=== PATIENT | male | born 1980 | race Caucasian/White ===

== ENCOUNTER → 2020-04-16 | Outpatient (CLI) | payer OTHER | END | disposition home or self-care (01) | LOC: LABWHC1 09:38 | PROVIDERS: ATTEND Orthopaedic Surgery | DX: Z01.812 Encounter for preprocedural laboratory examination (principal) | CPT/HCPCS: 87070 ==

== ENCOUNTER → 2020-04-26 | Outpatient (CLI) | payer OTHER ==
--- NOTE | 2020-04-26 08:50 | CT ---
EXAMINATION TYPE: CT cervical spine wo con DATE OF EXAM: 04/26/2020 COMPARISON: MRI 03/30/2020 HISTORY: 39-year-old male M54.2, cervicalgia, pre disc replacement surgery TECHNIQUE: Contiguous axial scanning of the cervical spine without IV contrast. Coronal and sagittal reconstructions performed. CT DLP: 664.1 mGycm Automated exposure control for dose reduction was used. FINDINGS: No craniocervical junction abnormality, predental space widening, or prevertebral soft tissue swellin g. There is straightening of the normal cervical lordosis but with preserved alignment. Underlying congenital spinal canal stenosis with AP canal dimension of 1.0 cm. Superimposed mild degenerative disc disease C5-C7 levels with focal disc herniations better seen on t he 03/30/2020 MRI causing moderate spinal canal stenoses but with focal indentations/compressions onto the cord at both of these levels. Uncovertebral joint arthropathy mid to lower cervical spine. At C3-C4, mild left bony neuroforaminal stenosis. At C4-C5, mild right bony neuroforaminal stenosis. At C6-C7, mild right bony neuroforaminal narrowing. Visualized upper lung are clear. IMPRESSION: 1. CONGENITAL SPINAL CANAL STENOSIS WITH AP CANAL DIMENSION OF 1.0 CM. 2. SUPERIMPOSED DEGENERATIVE DISC DISEASE PARTICULARLY FROM C5 THROUGH C7 LEVELS RESULTING IN AT LEAS T MODERATE SPINAL CANAL STENOSES BUT WITH FOCAL INDENTATION/COMPRESSION ON TO THE CORD AT BOTH OF THE SE LEVELS, BETTER SEEN ON THE 03/30/2020 MRI. 3. SCATTERED UNCOVERTEBRAL JOINT ARTHROPATHY. MILD BONY NEUROFORAMINAL NARROWING OUTLINED ABOVE.
== END | disposition home or self-care (01) ==
LOC: RADCTMAIN 07:53
PROVIDERS: ATTEND Orthopaedic Surgery
DX: M48.02 Spinal stenosis, cervical region (principal); M50.322 Other cervical disc degeneration at C5-C6 level; M47.812 Spondylosis without myelopathy or radiculopathy, cervical region
CPT/HCPCS: 72125

== ENCOUNTER 2020-05-11 06:11 | Observation (INO) | payer OTHER ==
[2020-05-04 11:58] VITALS: BMI 27.8
--- NOTE | 2020-05-10 12:00 | P.HPOR ---
History of Present Illness H&P Date: 04/16/20 Chief Complaint: Neck pain UE numbness/tingling This 39 year old male presents with neck pain on consult from Dr. Sierra in [place]. Patient states that in 2016 his neck popped while weight lifting. He has had 12 sessions of physical therapy 8 times with no relief. He had one home exercises as instructed with no relief of his neck pain. He has been to a Chiropractors with no relief. He reports posterior neck pain and right arm numbness. Patient has been taking Ibuprofen 800mg with no relief of his neck pain. Patient is ambulating independently. he feels that all physical therapy as well as conservative modalities have failed at this time and he would like to seek surgical options for this. He denies any bowel or bladder issues. He denies perineal numbness or tingling. He is not of difficulty with fine motor skills but he has the ability with activities are related to upper extremity motion secondary to the pain and the weakness that he feels Review of Systems 14 points review of systems completed and as stated in HPI, all other systems reviewed are negative. Past Medical History Past Medical History: No Reported History History of Any Multi-Drug Resistant Organisms: None Reported Past Surgical History: Back Surgery, Hernia Repair Past Anesthesia/Blood Transfusion Reactions: No Reported Reaction Past Psychological History: No Psychological Hx Reported Smoking Status: Former smoker Past Alcohol Use History: None Reported Additional Past Alcohol Use History / Comment(s): Smoked as a teenager. Past Drug Use History: None Reported - Past Family History Mother Family Medical History: No Reported History Medications and Allergies Home Medications Medication Instructions Recorded Confirmed Type No Known Home Medications 05/04/20 05/04/20 History Allergies Allergy/AdvReac Type Severity Reaction Status Date / Time No Known Allergies Allergy Verified 05/04/20 11:58 Physical Examination Osteopathic Statement: *. No significant issues noted on an osteopathic structural exam other than those noted in the History and Physical/Consult. General: Awake, alert, appropriate for age, in no acute distress. HEENT: No unusual neck masses around region of lateral neck triangle, thyroid, supraclavicular groove Heart: Regular rate and rhythm, normal S1, S2 and no murmur/gallop. Lungs: Clear to auscultation bilaterally with no use of accessory muscles. Extremities: Skin warm and dry without acute lesions, coloration, temperature, skin intact, no tenderness or erythema Integument: Hairy patches: Absent Dorsal skin dimples: Absent Cafe au lait spots: Absent Surgical incisions: none Palpation: Please see Pain drawing on Intake sheet for further detail. Midline spinal tenderness: yes lumbar E6 Paralumbar tenderness: No E6 Parathoracic tenderness: No E6 Buttocks tenderness: No E6 Special findings: none POSTURAL and MUSCULO-SKELETAL EVALUATION: Coronal Balance: Neutral Recumbent testing: Patient is able to lay flat on back Sagittal Balance: Neutral Shoulder Profile: level Pelvic Girdle: level Neck ROM: Unrestricted Lumbar ROM: Unrestricted Shoulder ROM: Symmetric in abduction, ER/IR Hip ROM: Symmetric in abduction, adduction, ER/IR Knee ROM: Symmetric and intact in Flexion / extension Hands: Normal Feet: Normal VASCULAR STATUS : LEFT RIGHT Wrist Pulses intact intact Pedal Pulses (Dors. pedis & post.tibialis) intact intact Color normal normal Edema Absent Absent NEUROLOGIC EXAMINATION: Mental Status: Awake and alert, fully oriented, with normal attention, concentration and memory, and fluent, appropriate speech. Cranial Nerves: I: Olfactory not tested. II: Visual acuity normal, no visual field deficit noted with confrontation. III,IV: Normal pupillary reflexes & intact extraocular movements without nystagmus. V,: Intact symmetrical facial sensation. VII: Intact symmetrical facial motor movement VIII: Hearing intact. IX,X: Intact gag, swallow, & normal voice. XI: Sternocleidomastoid, trapezius function intact. XII: Tongue midline with normal movements. L'hermitte's Sign: Negative / absent Spurling'Sign: Absent bilaterally. Cubital percussion test: Absent bilaterally. Vijay-Tinel sign - Carpal region: Absent bilaterally. Straight Leg Raising: Absent bilaterally. Crossed straight leg raise: negative MOTOR EXAM (0-5/5, N/T) STRENGTH RIGHT LEFT Shoulder Abd (not part of the VETO score) 5 5 Elbow Flexors 5 5 TricepsExtensor 4+ 5 Wrist Dorsiflexors 5 5 Finger Abductor 5 5 Business Applications Specialist 4+ 5 Hip Flexor (Not part of VETO Motor score) 5 5 Knee Flexor 5 5 Knee Extensor 5 5 Ankle dorsiflexor 5 5 Ankle plantarflexion 5 5 Extensor hallucis 5 5 REFLEXES(0-4/2, NT) RIGHT LEFT Upper Extremities 2 2 Lower Extremities 2 2 Pathological Reflexes RIGHT LEFT Matthews's Absent Absent Clonus Absent Absent negative Babinskis bilaterally Muscle appearance: Normal Rectal Tone: Deferred Sensory system (0-4, N/T) Test type RU JENNIFER RL LL Joint-Position 2 2 2 2 Vibration 2 2 2 2 Pain & LT sense 2 2 2 2 Dermatomal Deficit: none none none none Gait and Functional Evaluation: Ambulatory aids: Independent Romberg's test: Intact bilaterally Toe heel walk / heel-toe walk intact while maintaining satisfactory balance? yes Squatting/straightening w/o assistance to a min of 60 degree knee flexion? yes Single leg stance: intact Trendelenburg sign negative bilaterally Hand and finger dexterity intact bilaterally? yes Disdiadochokinesis examination negative bilaterally? yes Results XRAY: of the cervical spine today reveal: minor spondylotic changes at C5 6 C6 7. Overall alignment well-maintained disc heights and vertebral body heights maintained occipital cervical C1 2 joints appear stable flexion-extension no other instability lesions fractures or dislocations noted MRI of the cervical spine form 03/30/2020 reveals: disc herniations noted at C5 6 C6 7. This causes moderate to severe stenosis central as well as foraminal at C5-C6 C6 7. No lesions fractures or dislocations noted C1 2 as well as occipital cervical joints appear stable overall alignment is well-maintained. Assessment and Plan Assessment: 1. C5 6 as well as C6-C7 disc herniations acute on chronic 2. UE weakness with radiculopathy severe, failed conservative measures Plan: 2. Schedule for a C5-C6, C6-C7 disc replacement 3. due to failure of conservative measures including oral anti-inflammatory steroid anti-inflammatories muscle relaxers physical therapy home exercises well as other invasive modalities and noninvasive modalities the patient at this time would like to seek operative treatment for this as it is become detrimental to his lifestyle and his activities of daily living. Discussed at length the di fferent options for this and due to his age as well as his issues at do feel that disc replacement be the best thing for him. This will allow him to maintain motion decreased the risk of adjacent segment disease as well as decompresses spine and create stability that is available to him. Due to these being at lower levels the spina do feel that a semiconstrained dislike of Prodisc C is necessary for these levels. I discussed with him at length the different options disc replacement versus fusion and he agrees that he feels this replacement is a good option for him. We will obtain a CT of his cervical spine to assess his facet joints as well as surgically plan for disc replacement. Spine Surgery Risk Review Sudeep Dias is a 39 yo male presenting for evaluation of ongoing neck pain RUE pain and weakness for >6 months. It was my pleasure to have seen and examined Sudeep Dias In our visit today we have had a chance to go over subjective complaints, physical examination findings and treatments including the natural course history without intervention and various interventional options. The patients imaging demonstrates C5-6 and C6-7 a/c HNP with stenosis. On physical exam, Sudeep Dias demonstrates RUE radiculopathy and weakness when compared to his LUE. I have explained to the patient that as their condition progresses it will cause further neurological deficits and eventual paralysis. Based on the patients imaging, physical exam, and the rapid progression and disabling nature of their symptoms, at this time I recommend surgery in the form or a: Cervical disc replacement. I discussed the risk and benefits of this procedure at length with Sudeep Dias. The patient agreed to considered pursuing the procedure abovementioned. Prior to surgery, she should follow up with her PCP (Cardio, ID, IM etc) for clearance. Questions were invited and answered, and the patient wishes to proceed as outlined below. Currently, I am recommendin.Anterior (Frontside) cervical disc replacement at C5-6 and C6-7 2.Follow up with PCP for surgical clearance 3.Review of surgical risks and benefits as well as an educational packet on the proposed surgical procedure. Risks: All surgical procedures come with inherent risks, including those related to positioning, anesthesia, intraoperative findings, and postoperative complications. It is important to understand that surgery does not come with any guarantee of a successful outcome as complications and adverse events are always possible. The patient was given a handout in office today discussing the surgical procedure and risks associated with the intervention, both of which were discuss ed with the patient. These risks include but are not limited to the following: * Experiencing same, different or even worse symptoms in back, neck, arms, or legs compared to before surgery. Requiring further surgery or other forms of treatment presently or at some time in the future at same or other levels of the intended spine surgery. On an extreme but fortunately relatively rare basis severe complication such as blindness, stroke, heart attack, temporary and/or permanent nerve injury, paralysis, coma, or may occur, sometimes without known explanation. Surgical complications may include but are not limited to risk of infection, fluid accumulation in the surgical dissection site, including a seroma or hematoma, that requires additional surgery, wound drainage, bleeding, new numbness or weakness, vision changes/loss, spinal fluid leakage, non-healing and/or infected incision, headaches, difficulty or inability to swallow, hoarseness, hemopneumothorax, pneumothorax, impotence, retrograde ejaculation, vaginal dryness; injury to nerves, spinal cord, blood vessels, lymphatics or other vital organs (i.e., bowel injury, injury to the great vessels); heterotopic bone formation; complications related to the hardware such as screws, rods, cages including misplaced hardware, device failure, instrumentation at the wrong spine level, hardware fracture/breakage, or hardware loosening; vertebral failure of the spinal column above or below the newly placed hardware; retained surgical instrumentations or devices and the need for further surgery. * Medical risks of the planned spine surgery include but are not limited to generalized Infections to the whole body or local areas outside of the surgical site (sepsis), heart attack, bleeding, anaphylaxis, meningitis, seizure, epilepsy, hearing loss, burn campos, laceration of the head or other areas of the body, bruising, hypersensitivity of the skin, bladder over distension; allergic reaction; shoulder injury related to positioning; fat, blood and air clots to other areas of the body like heart, lungs, brain; failure of internal organs such as lungs, kidneys, liver and excessive bleeding. If blood transfusions are necessary, note that transfusions may cause intolerance reactions such as anaphylaxis or other complex reactions. We discussed the risks and benefits with the specific implant. Prodics c is a semiconstriained implant and is idea for the lower cervical spine. Due to the patient having two levels of disease I do feel it is necessary to address both of these levels and do so with an implant with the literature to support extermination supervisor outcomes like the prodisc c as well as the constraint at the bottom of the cervical spine that is biomechanically necessary. While the FDA approval is only for one level it was discussed that we can use this off label for two levels and what this entails. The patient understood this and was comfortable consenting to this use and assuming the risks associated with this. Despite best efforts, the results of spine surgery might not heal in terms of bone, soft tissues such as skin, fascia, ligaments, and joints. Additionally, in order to achieve best possible results, spine surgery may be carried out beyond the initially planned levels and involve decompression, fusion including insertion of hardware at levels other than the original intended area of surgical interest change some portions of the procedure in order to ensure the best possible outcomes. With spine surgery and spinal fusion, there are different off label uses of instrumentation (devices, implants and hardware) as well as biological substances (bone morphogenic proteins, demineralized bone matrix) as well as using extra bone from allograft sources (i.e. cadaver bone) or autograft (iliac crest bone, ribs, or the spine itself). The patient has been given information about these practices and their inherent risks and benefits. [facility] is an educational center that serves as a training facility for neurosurgical and orthopedic spine residents and fellows. Residents are physicians who are completing their surgical intensive training following medical school. They assist in the operating room with direct supervision of the attending surgeons. [place] are surgeons who have completed their training and eligible for board certification. They have opted for an elective year of more specialized training in their field. They assist in the operating room under the supervision of the attending surgeons. Physician assistants are medically trained surgical providers who function in the outpatient, inpatient, and operating room setting under the direct supervision of the attending surgeon. [facility] has multiple operating rooms with single and overlapping rooms running daily. They currently function under the required guidelines as produced by the [facility] [employer] with regards to the overlapping rooms and will continue to comply with changes to this policy as they occur. The requirements include and are complied with as follows: (1) the critical portions of the overlapping rooms will not occur at the same time, (2) the attending physician will be physically present during the critical portions of the procedure and immediately available during the entire case, and (3) a back-up attending is designated should the primary attending not be immediately available. The patient has had a chance to review all the listed information, has been given print outs detailing this information, and has had all his/her questions answered to their satisfaction. It was my pleasure to have seen and examined Sudeep Dias. In our visit today we have had a chance to go over my understanding of our patient's current condition, the natural course history without intervention and various interventional options. Questions were invited and answered, and the patient wishes to proceed as outlined above. I have seen and examined the patient for 25 minutes and we have spent more than 50% of the time in repeat and detailed counseling about the patient's condition, its natural course history with out and as much as can be predicted with surgery and re-review of various surgical treatment options. In conclusion, Sudeep Dias and requested we proceed with the above suggested surgery and are willing to accept risks and limitations of the suggested surgery as nature of the disease process and our best attempts at treatment for the condition. Thank you again for allowing us to be part of your patient's care. Please don't hesitate to contact me if you have any further questions. Signed and authenticated by: [employer] P:\\ppart\\[id number] \\[id number].PNG \d Sudeep [facility] [address], [address] [address] Time with Patient: Greater than 30
[~2020-05-11 06:11] MED LIST: ACETAMINOPHEN TAB 500 MG TAB PO PRN; DEXAMETHASONE SOD PHOSPHATE 4 MG/ML 1 ML VIAL IV ONE; LIDOCAINE 1% (10MG/ML) FOR IV START INTRADERMA PRN; ONDANSETRON 4 MG/2 ML VIAL IVP PRN
[2020-05-11] MEDS: LACTATED RINGERS 1,000 ML IV SCH ×2 (06:48→20:28)
[2020-05-11] MEDS ORDERED: GLYCOPYRROLATE 0.2 MG/ML 2 ML VIAL ONE (07:30)
[2020-05-11] MEDS ORDERED: PROPOFOL 10 MG/ML 20 ML VIAL IV ONE (07:30)
[2020-05-11] MEDS ORDERED: SUCCINYLCHOLINE CHLORIDE 100 MG/5 ML SYR IV ONE (07:30)
[2020-05-11] MEDS ORDERED: ROCURONIUM 10 MG/ML (5 ML VIAL) IV ONE (07:30)
[2020-05-11] MEDS ORDERED: fentaNYL (PF) 50 MCG/ML 2 ML AMP ONE (07:30)
[2020-05-11] MEDS ORDERED: MIDAZOLAM 2 MG/2 ML VIAL ONE (07:30)
[2020-05-11] MEDS ORDERED: DEXAMETHASONE SOD PHOSPHATE 10 MG/ML 1 ML VIAL ONE (07:30)
[2020-05-11] MEDS ORDERED: ePHEDrine SULFATE/0.9% NACL/PF 50 MG/5 ML SYRINGE IV ONE (07:30)
[2020-05-11] MEDS ORDERED: NEOSTIGMINE 1 MG/ML 10 ML VIAL ONE (07:30)
[2020-05-11] MEDS ORDERED: KETAMINE 10 MG/ML 20 ML VIAL ONE (07:30)
[2020-05-11] MEDS ORDERED: KETOROLAC 15 MG/ML 1 ML VIAL ONE (07:30)
[2020-05-11] MEDS ORDERED: LIDOCAINE 1% INJ 10MG/ML (20 ML MDV) ONE (07:30)
[2020-05-11] MEDS ORDERED: GELATIN SPONGE,ABSORB (LARGE) 1 EACH SPONGE TOPICAL ONE (08:45)
[2020-05-11] MEDS ORDERED: THROMBIN (BOVINE) 5,000 UNIT VIAL TOPICAL ONE (08:45)
[2020-05-11] MEDS ORDERED: BUPIVACAINE-EPI 0.5%-1:200,000 10 ML VIAL SQ ONE (08:47)
[2020-05-11] MEDS ORDERED: LACTATED RINGERS 1,000 ML IV ONE (08:49)
[2020-05-11] MEDS ORDERED: HYDROcodone/APAP 5-325MG 1 EACH TAB PO PRN (11:44)
[2020-05-11] MEDS ORDERED: DEXAMETHASONE SOD PHOSPHATE 4 MG/ML 1 ML VIAL IV PRN (11:46)
[2020-05-11] MEDS ORDERED: SENNOSIDES 8.6 MG TAB PO PRN (11:46)
[2020-05-11] MEDS ORDERED: CYCLOBENZAPRINE 10 MG TAB PO PRN (11:46)
--- NOTE | 2020-05-11 13:15 | FL ---
EXAMINATION TYPE: FL guidance operating room DATE OF EXAM: 05/11/2020 HISTORY: Fluoroscopy time 1 minute and 57 seconds of fluoroscopy provided. IMPRESSION: 1. Fluoroscopy time.
--- NOTE | 2020-05-11 13:18 | XR ---
EXAMINATION TYPE: XR cervical spine limited DATE OF EXAM: 05/11/2020 COMPARISON: NONE HISTORY: Intraoperative image TECHNIQUE: 2 views submitted. FINDINGS: There is to be an endotracheal tube. A metallic instrument is seen overlying the upper vert ebral body segment. IMPRESSION: Intraoperative localization
[2020-05-11] MEDS ORDERED: SODIUM CHLORIDE 0.9% 1,000 ML IV ONE ×2 (13:47)
[2020-05-11] MEDS ORDERED: ONDANSETRON 4 MG/2 ML VIAL IVP ONE (14:49)
[2020-05-11] MEDS ORDERED: HYDROmorphone 0.5 MG/0.5 ML SYRINGE IVP ONE ×2 (14:51→15:01)
[2020-05-11] MEDS: KETOROLAC 15 MG/ML 1 ML VIAL IVP SCH ×2 (17:55→20:35)
[2020-05-11] MEDS: GABAPENTIN 300 MG CAP PO SCH ×2 (17:55→20:35)
[2020-05-11] MEDS: HYDROmorphone 0.5 MG/0.5 ML SYRINGE IVP PRN (20:34)
[2020-05-11] MEDS: 0.9% NACL WITH KCL 20 MEQ/L 1,000 ML IV SCH (20:34)
[2020-05-12 00:21] VITALS: RESP 18
[2020-05-12] MEDS: HYDROmorphone 0.5 MG/0.5 ML SYRINGE IVP PRN ×2 (00:39→09:04)
--- NOTE | 2020-05-12 00:49 | P.CONS ---
History of Present Illness - Reason for Consult Consult date: 05/12/20 - History of Present Illness The patient is a 39 yo M with a PMH of cervical radiulopathy who was admitted for an elective cervical disc replacement. The patient underwent the procedure earlier today with no immediate postoperative complications. Patient was seen for a medical consult. The patient had experienced a popping in his neck while weight lifting a few years ago. He subsequently went back to the gym 6 months ag o and feels that he may have aggravated his initial injury. He reports experiencing significant neck pain along with R arm numbness for past 6 months with minimal relief with physical therapy or chiropractors, at which time he decided to pursue surgical intervention. He was in good spirits and reported adequate control of his pain, currently at a 3-4/10 diffusely in his neck. Denied weakness, numbness, or tingling. Also denied headache, visual disturbances, nausea, or vomiting. Reports having no additional PMH and that he only takes Motrin prn for neck pain at home. Review of Systems Pertinent positives and negatives as discussed in HPI, a complete review of systems was performed and all other systems are negative. Past Medical History Past Medical History: No Reported History History of Any Multi-Drug Resistant Organisms: None Reported Past Surgical History: Back Surgery, Hernia Repair Additional Past Surgical History / Comment(s): cervical disc replaced C5-6 and C6-7 on 05/11/2020 Past Anesthesia/Blood Transfusion Reactions: No Reported Reaction Past Psychological History: No Psychological Hx Reported Smoking Status: Former smoker Past Alcohol Use History: None Reported Additional Past Alcohol Use History / Comment(s): Smoked as a teenager. Past Drug Use History: None Reported - Past Family History Mother Family Medical History: No Reported History Medications and Allergies Home Medications Medication Instructions Recorded Confirmed Type No Known Home Medications 05/04/20 05/11/20 History Allergies Allergy/AdvReac Type Severity Reaction Status Date / Time No Known Allergies Allergy Verified 05/11/20 06:24 Physical Exam Vitals: Vital Signs Temp Pulse Pulse Pulse Resp BP BP 05/11/20 20:00 97.8 F 63 18 119/74 05/11/20 17:01 97.6 F 74 20 154/66 05/11/20 17:00 20 05/11/20 16:30 78 16 115/65 05/11/20 16:00 83 18 99/52 05/11/20 15:30 67 16 104/55 05/11/20 15:00 75 16 107/56 05/11/20 14:30 67 16 108/61 05/11/20 14:15 70 17 106/58 05/11/20 13:50 78 16 104/56 05/11/20 13:35 69 16 113/59 05/11/20 13:20 73 17 110/58 05/11/20 13:05 65 16 106/58 05/11/20 12:50 62 16 108/56 05/11/20 12:39 60 16 108/53 05/11/20 12:24 64 16 108/56 05/11/20 12:09 97.6 F 67 16 97/54 05/11/20 06:44 97.4 F L 67 16 112/57 Pulse Ox 05/11/20 20:00 97 05/11/20 17:01 98 05/11/20 17:00 05/11/20 16:30 100 05/11/20 16:00 99 05/11/20 15:30 98 05/11/20 15:00 99 05/11/20 14:30 97 05/11/20 14:15 99 05/11/20 13:50 99 05/11/20 13:35 99 05/11/20 13:20 100 05/11/20 13:05 99 05/11/20 12:50 99 05/11/20 12:39 98 05/11/20 12:24 98 05/11/20 12:09 97 05/11/20 06:44 98 Intake and Output 05/11/20 05/11/20 05/12/20 14:59 22:59 06:59 Intake Total 1850 1440 Output Total 75 Balance 1775 1440 Intake: IV 1850 600 Intake, IV Titration 600 Amount 0.9% NaCl with KCl 20 Meq 600 /l 1,000 ml @ 75 mls/hr IV .[id number] [facility] Rx#: [id number] Oral 240 Output: Estimated Blood Loss 75 Other: Voiding Method Toilet # Voids 2 Weight 92.3 kg General: non toxic, no distress, in a neck brace, appears at stated age, normal weight Derm: no unusual rashes/lesions no unusual ecchymoses, warm, dry Head: atraumatic, normocephalic, symmetric Eyes: EOMI, no lid lag, anicteric sclera, pupils equal round reactive to light ENT: Nose and ears atraumatic, no thrush, no pharyngeal erythema Neck: No thyromegaly, no cervical lymphadenopathy, trachea midline, supple Mouth: no lip lesion, mucus membranes moist Cardiovascular: S1S2 reg, no murmur, positive posterior tibial pulse bilateral, no edema, capillary refill less than 2 seconds Lungs: CTA bilateral, no rhonchi, no rales , no accessory muscle use Abdominal: soft, nontender to palpation, no guarding, no appreciable organomegaly, normal bowel sounds Ext: no gross muscle atrophy, muscle strength 5 out of 5 in all 4 extremities grossly, no contractures, Neuro: CN II-XI grossly intact, light touch intact all 4 extremities, finger to nose within normal limits, Psych: Alert, oriented, appropriate affect Assessment and Plan Plan: S/p cervical disc replacement C5-C6, C6-C7 -Will defer management including pain control to the surgery service -Patient currently on [place], Indocin, and Dilaudid We appreciate this opportunity to be involved in this patient's care. We will follow the patient with you. For any further questions, please not hesitate to contact the sound inpatient team.
[2020-05-12] MEDS: KETOROLAC 15 MG/ML 1 ML VIAL IVP SCH (05:21)
[2020-05-12] MEDS: 0.9% NACL WITH KCL 20 MEQ/L 1,000 ML IV SCH (05:22)
[2020-05-12 07:02] VITALS: BP 110/67; PULSE 62; TEMP 97.7
--- NOTE | 2020-05-12 08:29 | P.PN ---
Subjective Progress Note Date: 05/12/20 Principal diagnosis: Cervical spondylosisi Patient seen and examined this morning. He is doing well. He states that the pain in his arm is much better and gone. He has been up and about he is tolerating his medications as well as his diet at this time with only minimal soreness stroke. He denies any fevers chills shortness of breath or chest pain at this time. Objective - Vital Signs Vital signs: Vital Signs Temp 97.7 F 05/12/20 06:55 Pulse 62 05/12/20 06:55 Resp 18 05/12/20 06:55 BP 110/67 05/12/20 06:55 Pulse Ox 99 05/12/20 06:55 Intake & Output 05/11/20 05/12/20 05/12/20 18:59 06:59 18:59 Intake Total 2690 600 Output Total 75 30 Balance 2615 600 -30 Weight 92.3 kg Intake: IV 2450 Intake, IV Titration 600 Amount 0.9% NaCl with KCl 20 Meq 600 /l 1,000 ml @ 75 mls/hr IV .[id number] MAGDA Rx#: [id number] Oral 240 Output: Drainage 30 Anterior Neck 30 Estimated Blood Loss 75 Other: Voiding Method Toilet Toilet # Voids 1 2 - Exam Patient is alert and oriented 3 appears well-nourished well-hydrated is in no acute distress. They does not appear septic. On exam the patient has no tenderness to palpation of her thoracic or lumbar spine. There is no edema or ballottement sign. They have good strength in her lower extremities with 5 out of 5 dorsiflexion plantar flexion EHL and FHL bilaterally. Upper extremities show 5/5 strength in all major muscle groups. There is FROM that is painless of the b/l UE and LE in all major joints. They are intact to light touch sensation in L2 to S1 nerve distribution. Patient has palpable dorsalis pedis was posterior tibial pulses. Compartments are soft and compressible. Patient shows a negative Homans, Matthews's, negative Babinski's negative clonus bilaterally. negative straight leg raise bilaterally. No tensioning signs.Cranial nerves II through XII are grossly intact. Overall alignment is well-maintained in the sagittal coronal planes. Incision is clean dry and intact no erythema or ecchymosis or edema. Drain hole and drain stitch removed at this time. Minimal drainage Assessment and Plan Assessment: 39-year-old male postoperative day 1 C5 6 C6 7 total disc replacement 1. C5 6 as well as C6-C7 disc herniations acute on chronic 2. UE weakness with radiculopathy severe, failed conservative measures Plan: -Appreciate medicine management. -Pain control: At this time -Aggressive ambulation protocol. OOB with all meals. OOB or in chair 4-5x daily. -PT/OT -TEDs, SCDs, mechanical ppx. OK for heparin today. Early ambulation is best. -GI ppx. -X-rays today show implants in good position -Trend labs. -Dispo: Home today
--- NOTE | 2020-05-12 08:45 | XR ---
Cervical spine Limited HISTORY: Postop Frontal and lateral views obtained of the cervical spine, comparison to previous exam 04/16/2020 There has been interval placement of prosthetic disc at the C5-6 and C6-7 level, there is an indwelli ng drain overlying the prevertebral soft tissues. C7-T1 not well seen. There is anatomic alignment. S ubcutaneous emphysema is noted incidentally. IMPRESSION: Orthopedic follow-up.
--- NOTE | 2020-05-12 09:02 | P.DS ---
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 They underwent appropriate preoperative care and were willing to undergo the intended procedure. They underwent a successful C5 6 C6 7 total disc replacement, were recovered appropriately and sent to the floor. While on the floor they worked with physical therapy, occupational therapy and nursing to enhance their recovery experience. Their pain was well controlled through their stay and they were started on appropriate medications, DVT ppx modalities, activity and dietary needs. Daily labs were monitored closely, and transfusions were only used when necessary. Medicine as well as other consulting services have made their input and have helped with our team approach and multidisciplinary care. PT milestones have been met and passed and they have made the recommendation of home for this patient and treating providers agree with this care path. The patient will be discharged home with appropriate medications, instructions and follow-up information and in stable condition. Patient Condition at Discharge: Stable Plan - Discharge Summary New Discharge Prescriptions: New cefaDROXiL [Duricef Susp] 10 ml PO BID 3 Days ml Cyclobenzaprine [Flexeril] 10 mg PO TID PRN #40 tab PRN Reason: Spasms Gabapentin 300 mg PO TID 3 Days #9 cap Indomethacin [Indocin] 50 mg PO BID 14 Days #30 capsule HYDROcodone/APAP 5-325MG [[place] 5-325] 1 - 2 tab PO Q4H PRN #56 tab PRN Reason: Pain Sennosides/Docusate Sodium [Senna Plus 8.6-50 mg Tablet] 1 each PO BID #30 tablet Discharge Medication List Cyclobenzaprine [Flexeril] 10 mg PO TID PRN #40 tab 05/12/20 [Rx] Gabapentin 300 mg PO TID 3 Days #9 cap 05/12/20 [Rx] HYDROcodone/APAP 5-325MG [[place] 5-325] 1 - 2 tab PO Q4H PRN #56 tab 05/12/20 [Rx ] Indomethacin [Indocin] 50 mg PO BID 14 Days #30 capsule 05/12/20 [Rx] Sennosides/Docusate Sodium [Senna Plus 8.6-50 mg Tablet] 1 each PO BID #30 tablet 05/12/20 [Rx] cefaDROXiL [Duricef Susp] 10 ml PO BID 3 Days ml 05/12/20 [Rx] Follow up Appointment(s)/Referral(s): Sudeep Broderick DO [Doctor of Osteopathic Medicine] - 2 Weeks Activity/Diet/Wound Care/Special Instructions: Spine Discharge and Recovery Instructions Date of Surgery: 05/11/2020 Diagnosis: Cervical spondylosis with radiculopathy and herniated nucleus pulposus Procedure: C5 6 C6 7 total disc replacement Medications: See list All medication refills should be obtained through your primary care doctor or your clinic spine surgeon. Please discuss prescription refills at your follow up appointment. Do not call the hospital for medication refills. Dressing: Leave your dressing in place for a total of 3 days post operatively. Then you may remove your dressing and leave open to air. Keep the area clean and if not able to keep area clean, then cover with sterile gauze and tape. Showering: You may shower 3 days after your procedure allowing soap and water to run over incision. Do not scrub. Do not soak. Blot dry. He is wearing her cervical collar at all times when up and about or riding in a vehicle. He may remove it when seated still or for showering Follow up: Please confirm a follow up appointment with your surgeon 2 weeks post operatively. Please make an appointment to follow up with your PCP in 1-2 weeks after surgery for evaluation 3 phase, 3-week plan POST OP WEEKS 1-3 1. Lifting/carrying/pushing/pulling limited to less than 5 pounds. 2. Do not sit for longer than 15 minutes at one time. Get up and walk around. Prolonged sitting is NOT advised. If you lay down, see if you can tolerate laying down on you front (belly side) 3. Walk for periods of 15 minutes = 1 mile but no longer; do it multiple times times each day. 4.Ice your low back after activity. POST OP WEEKS 3-6 1. Lifting limited to less than 20 pounds. 2. Do not sit for longer than 30 minutes at a time. Frequently change positions. Use a sit-to stand workstation or take frequent breaks from sitting if you have returned to work. 3. Walk for 30 minutes each day. If possible, do these three or more times a day POST OP WEEKS 6+ At your 6-week appointment we will give you a physical therapy referral to focus on a core stabilization and strengthening program. You should also work on leg & buttock strengthening, hamstring & quadriceps stretching, and continue a low impact aerobic activity program such as swimming, walking, or riding a stationary bicycle. During the initial 6 weeks after your surgery, you are at the highest risk of re-injuring your spine. You should generally avoid BLTs (bending, lifting and twisting combination motions) and follow the above guidelines to reduce the chance of reinjury. You can anticipate post op appointments in our office at approximately 3 weeks and 6 weeks after your surgery. INCISION CARE: If your incision is not draining you do NOT need to cover it with a dressing. Keep your incision clean, dry and intact. In most cases, we apply skin glue, juan or sutures to the incision at the time of surgery. This will be like a crust or have the appearance of a scab and will fall off in time on its own. The stitches or juan need to be removed at 3 weeks post op appointment. You may begin to shower 3 days after surgery (this allows the glue to salazar well). However, please avoid scrubbing the incision site or peeling off any of the skin glue. This will ensure optimal healing of your incision. Also, during this time avoid soaking the incision area in water - this includes swimming pools, hot tubs or baths. No ointments, lotions or oils on the incision until your surgeon allows. Leave juan, sutures or glue in place. Neurological dysfunction that comes on suddenly can also be a sign of a stroke. Below some common symptoms of a stroke are listed: B - balance difficulty such as sudden onset walking or leaning to one side - NEW E - eye problem such as sudden double vision or trouble seeing on one side - NEW F - Facial weakness or numbness on one side - NEW A - Arm or leg weakness or numbness on one side - NEW S - Slurred speech or difficulty with word finding - NEW T - Time is BRAIN! Call 911 as soon as you recognize these symptoms Diet: Consume a regular diet rich in vegetables and lean protein such as chicken or fish. You should consume in a ratio of approximately 20% fats|40% carbohydrates|40%protein. Vegetables, sweet potatoes, brown rice or quinoa are examples of good carbohydrates. Chips, white bread, cookies and sweets/sugar are examples of bad carbohydrates. Limit your bad carbs, go wild with good carbs. "Life's Simple 7" Guidelines as per [place] [employer] These will help you reclaim your life after surgery and compounder helper in your recovery, keeping in mind your restrictions. (1) Get Active. Physical activity can help people lose weight, control high blood pressure and cholesterol, feel emotionally better, and sleep better. (2) Control Cholesterol. Avoid a diet high in saturated fat, trans fat, & cholesterol. Limit whole milk & cream, ice cream, butter, egg yolks, processed meats (like sausage and hot dogs), and fatty meats. Choose healthy foods that are low in saturated fat, trans fat and cholesterol which include: Fruits and vegetables, fiber rich grain products (like whole grain pasta and brown rice), lean meat such as chicken, fish, nuts, seeds, and legumes. (3) Eat Better. Eat small portions. Shop at the grocery with a list and do not stray from it. Tips for a healthy diet include: Limit sodium intake to less than 1500mg daily, avoid prepackaged, processed, and fast foods, choose a diet rich in fruits, vegetables, and whole grain, high fiber foods, and limit saturated & cholesterol in your diet. (4) Manage Blood Pressure. If you have high blood pressure, you should have a cuff at home so that you can check your blood pressure regularly. Be sure you have a good cuff. An arm one is generally better than a wrist one. Bring the cuff to a doctor's appointment to validate that the measurements that your cuff are taking are accurate. Take your blood pressure twice daily when you are sitting down and relaxing. Record the numbers in a log and bring this log with you to your doctors' appointments. (5) Lose Weight if your BMI is above 25. A healthy BMI is between 19-25. To calculate Your BMI, you may use a Standard BMI Calculator on the NIH BMI website: <www.nhlbi.nih.gov/guidelines/obesity/BMI/bmicalc.htm>. Weigh oneself daily. If you are overweight, set a goal to lose weight. A pound a week loss if needed is a good target. (6) Reduce Blood Sugar. Limit foods and liquids with "added sugars." (Added sugars include sucrose, fructose, glucose, maltose, dextrose, high fructose corn syrup, corn syrup, concentrated fruit juice and honey). (7) Stop Smoking. If you smoke, quitting smoking is one of the best things that you can do for your health. Smoking increases your risk of heart attack, stroke, and peripheral vascular disease, which is a build-up of plaque in your arteries. Please discard all the cigarettes and lighters in your house. Have a plan for what you will do when you have the urge to smoke. Direct and second- hand smoke shortens your life as well as the lives of your family, friends and others around you. For your health and the health of those around you, please consider quitting! Proper Bending Body Mechanics: Maintain a wide stance with one foot slightly in front of the other. Keep your back straight. Bend utilizing the strength in your hips and knees. Do not bend at the waist. Maintain the lifted object at your waist-level close to your body. Avoid lifting weight that causes immediately pain or pain anywhere in the body afterwards. Smoking/Nicotine If there was ever one thing that you could do to increase your overall health, decrease your risk of cardiovascular problems by about 39% the second you make the choice, it is to STOP SMOKING. Your body's most instant gratification is the second you stop smoking. We have all heard the studies, read the articles but it is true, smoking is extremely bad for your overall health, and moreover it is detrimental to your bone health. Nicotine, IN ANY FORM, kills bone cells, prevents your body from healing fractures, and significantly prolongs healing after surgery. In spine surgery specifically, it increases your risk of not healing your bones to create a fusion and increases your risk of having a revision surgery due to this up to 60%. I know it is hard. I know it feels impossible. But there are ways. Take control of your life. We are here to help you through it. And when you are ready, ask us and we can direct you to help if you desire. Use the START Plan to Quit Smoking (please visit the Helpguide.org website listed below for more information): S = Set a quit date. Choose a date within the next 2 weeks, so you have enough time to prepare without losing your motivation to quit. If you mainly smoke at work, quit on the weekend, so you have a few days to adjust to the change. T = Tell family, friends, and co-workers that you plan to quit. Let your friends and family in on your plan to quit smoking and tell them you need their support and encouragement to stop. Look for a quit reji who wants to stop smoking as well. You can help each other get through the rough times. A = Anticipate and plan for the challenges you'll face while quitting. Most people who begin smoking again do so within the first 3 months. You can help yourself make it through by preparing ahead for common challenges, such as nicotine withdrawal and cigarette cravings. R = Remove cigarettes and other tobacco products from your home, car, and work. Throw away all your cigarettes (no emergency pack!), lighters, ashtrays, and matches. Wash your clothes and freshen up anything that smells like smoke. Shampoo your car, clean your drapes and carpet, and steam your furniture. T = Talk to your doctor about getting help to quit. Your doctor can prescribe medication to help with withdrawal and suggest other alternatives. If you can't see a doctor, you can get many products over the counter at your local pharmacy or grocery store, including the nicotine patch, nicotine lozenges, and nicotine gum. Resources for Quitting Smoking: <https://www.[place].gov/documents/[facility]/Quit_Tobacco_Resources_for_patients_313 480_7.pdf> Supplementation: Take recommended dosages of Vitamin D and Calcium to help fortify your bones and help them to heal. See your health maintenance packet for dosages and recommended levels. DVT/VTE prophylaxis: You will be given compression stockings from the hospital. Wear these daily for the first two weeks after surgery. You may take them off at night. You may be prescribed a medication to help thin your blood. Take this as directed. If you are not prescribed this medication, early and frequent ambulation has been shown to be the best prophylaxis to deep vein thrombosis and sequelae related to this event. Discharge Disposition: HOME SELF-CARE
[2020-05-12] MEDS: GABAPENTIN 300 MG CAP PO SCH (09:07)
[2020-05-12 10:20] LABS: Basophils # (A) 0.01 X 10*3/uL (0.00-0.10); Basophils % (A) 0.1 %; Eosinophils # (A) 0 X 10*3/uL (0.04-0.35); Eosinophils % (A) 0 %; HCT 35.2 % (39.6-50.0); HGB 11.9 g/dL (13.0-17.0); Lymphocytes # (A) 1.07 X 10*3/uL (0.90-5.00); Lymphocytes % (A) 11.4 %; MCH 28.3 pg (27.0-32.0); MCHC 33.8 g/dL (32.0-37.0); MCV 83.6 fL (80.0-97.0); Mean Platelet Volume 9.6 fL (9.5-12.2); Monocytes % (A) 10.6 %; Neutrophils # (A) 7.29 X 10*3/uL (1.80-7.70); Neutrophils % (A) 77.5 %; Platelet Count 162 X 10*3/uL (140-440); RBC 4.21 X 10*6/uL (4.40-5.60); RDW 12.1 % (11.5-14.5); WBC 9.41 X 10*3/uL (4.50-10.00)
[2020-05-12 11:05] LABS: African American GFR (CKD) 110.2 (60.0-200.0); Non-African American GFR(CKD) 95.1 (60.0-200.0); Potassium 4.7 mmol/L (3.5-5.5)
--- NOTE | 2020-05-12 14:36 | P.OP ---
Date of Procedure: 05/11/20 Preoperative Diagnosis: 1. 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 C5-6 and C6-7 herniated nucleus pulposis 3. RUE radiculopathy and weakness Postoperative Diagnosis: 1. 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 C5-6 and C6-7 herniated nucleus pulposis 3. RUE radiculopathy and weakness Procedure(s) Performed: 1. C5-6 Total disc replacement 2. C6-7 Total disc replacement 3. Use of intraoperative microscope Implants: Prodisc C 7 mm Large Deep implants x2 Anesthesia: GETA Surgeon: Sudeep Broderick (KITTY Lerma was present for the entire case and necessary due to the complexity of the case. ) Estimated Blood Loss (ml): 75 IV fluids (ml): 2,000 Urine output (ml): 0 Pathology: none sent Condition: stable Disposition: PACU Indications for Procedure: This 39 year old male presents with neck pain on consult from Dr. Sierra in [place]. Patient states that in 2016 his neck popped while weight lifting. He has had 12 sessions of physical therapy 8 times with no relief. He had one home exercises as instructed with no relief of his neck pain. He has been to a [facility] with no relief. He reports posterior neck pain and right arm numbness. Patient has been taking Ibuprofen 800mg with no relief of his neck pain. Patient is ambulating independently. he feels that all physical therapy as well as conservative modalities have failed at this time and he would like to seek surgical options for this. He denies any bowel or bladder issues. He denies perineal numbness or tingling. He is not of difficulty with fine motor skills but he has the ability with activities are related to upper extremity motion secondary to the pain and the weakness that he feels. He has gone through extensive conservative treatment and nothing has helped. He is ready for surgical treatment. Operative Findings: C5-6 and C6-7 large paracentral, old disc herniations non healing with central and foraminal stenosis Description of Procedure: The patient was seen and examined in the preoperative area. All preoperative protocols were followed. Informed consent was obtained risks and benefits of the procedure were discussed at length. Risks including bleeding infection damage to the surrounding tissue and risk of reoperation were discussed with the patient. Risk of anesthesia up to and including was a discussed with the patient. These are outlined in the risk review. They were willing to accept these risks and all of the risks of surgery. The patient was given a weight- based dose of antibiotics in the form of vancomycin 1 g IVPB. The patient was seen and evaluated by the anesthesia team who deemed them fit for surgery. The site was marked, the patient was willing to proceed with the procedure. The patient was transferred to the operative suite by the Department of anesthesia. They were then drifted off to sleep by the department anesthesia GETA. The patient tolerated this well. [Martel catheter was placed by nursing staff, atraumatically]. Once confirmation of lines and ventilation the patient was transferred to a supine flat Derek table very carefully. Arms were tucked at the side and well-padded. A bump was placed in the patient's shoulders as well as a roll under the patient's neck for support All bony prominences including wrists, elbows, axilla, chest, hips, and thighs, and feet were padded very well. Special attention was paid to the genitalia and these were padded accordingly. SCDs were placed on bilateral lower extremities and were connected. Arms were well padded and placed at the patient's side. Once in position, again we confirmed good ventilation capabilities and that lines were running appropriately. The patient's anterior cervical spine was then exposed. 1010s were placed outlining the incision site. Standard alcohol was used to clean the incision site and allowed to dry. C-arm was used to biomark the patient and confirm level for incision which was marked with a skin marker. Operative briefing was performed with all teams and everyone in agreement to proceed. The patient was then prepped and draped in a normal sterile fashion. Timeout was then performed and all parties were in agreement with the procedure to be performed. Skin incision was made over the previously bio marked area and standard Hernandez- Bhakta approach anterior cervical spine was taken. Once we were at the level of the anterior cervical spine a [place] 4 was used to dante out a lateral fluoroscopic image the C5-C6 interspace. Once this was identified it was then marked with a Bovie. We then placed our retractors. Electrocautery and bipolar dissection was then used to expose C5 6 and C6 7 disc spaces and to create longitudinal flaps in the longissimus muscle. Retractors then placed deep to last longissimus muscles allow visualization of the uncovertebral joints bilaterally. A Chadd was then used to remove the disc at C6 7 first this confirmed under lateral fluoroscopy. This was then removed and the endplates were scraped using curettes. We then placed distraction pins in the C6 body as well as the C7 body and distractors placed with any used lateral fluoroscopic imaging to allow for parallel distraction in this area. Once a good parallel distraction we could visualize the PLL. Once the PLL was visualized and was scraped and high-speed bur was used to remove osteophytes posteriorly. The PLL was then resected using Kerrison rongeurs as well as a 60 up-biting curet. We performed foraminotomies bilaterally with a 2 Kerrison. We pulled a large amount of disc material from the right-sided foramen. Once we did remove the disc in this area and perform the foraminotomies we are able to easily pass a Moreira ball probe through these areas signifying good decompression. We then used a trial to size the implant and under lateral and AP fluoroscopy confirmed good placement centrally as well as posteriorly along the posterior body line. The distraction was then removed and the trial was in place we then used the high-speed bur to bur through the jig the keel holes. Once these were burred the jig was removed and a chisel was placed over the implant and impacted into place under lateral fluoroscopy confirming good placement. We then removed the trial and irrigated the endplates as well as the bur holes. We then clean the bur holes with a scraper. The bur holes were in good position and there was good decompression we performed meticulous hemostasis deep with FloSeal. The final implant was then impacted into place under lateral fluoroscopy and confirmed to be in good position under AP and lateral fluoroscopy. We then removed the distraction pin from the C7 body and placed bone wax in its void with internal attention to the C5 6 level we placed a distraction pin in the C5 vertebral body's allowed for distraction in this area. We then performed complete discectomy of C5-C6. Once this was performed and the posterior longitudinal ligament encountered the posterior longitudinal ligament was resected. Bilateral foraminotomies were then performed using Kerrison rongeur. Meticulous hemostasis was performed using FloSeal. We then chose a trial for the C5 6 level and impacted the trial in place and the under AP and lateral fluoroscopy and confirmed it was in good position once in good position we removed distraction and the trial was in good place we then burred the keel holes for the trial removed the jig and placed the chisel and impacted this into place under lateral fluoroscopy which confirmed good position. We then removed the trial and the chisel and irrigated out the areas and scraped out the keel holes. Meticulous hemostasis was again performed using FloSeal. Final implant was then selected and impacted into place under lateral fluoroscopy. We confirmed good position under AP and lateral fluoroscopy the implants were stable. We then removed the distraction pins from C5 and C6 and placed bone wax and other void. Bone wax was meticulously placed over the keel areas anteriorly to prevent any excess bone formation or bleeding in these areas. The patient had very vascular bone and so we placed bone wax where needed. The wound was then copiously irrigated with normal sterile saline final AP and lateral shots were taken confirming good placement of implants. We then placed a drain deep to the fascia and placed Surgicel around this. The drain was sewn into place with nylon. The platysmal flap was repaired with 3-0 Vicryl subcu was closed with 3-0 Vicryl and the skin closed with a running 4-0 Monocryl. This was then sterilely cleaned and dressed with exophin glue followed by Telfa and Tegaderms. The patient was transferred back to his hospital bed atraumatically. Drain continued to hold suction and were in good position. Patient was then awakened and extubated by the department of anesthesia having tolerated the procedure very well with no complications. he was transferred to the postoperative care unit in stable condition.
[2020-05-13] MEDS ORDERED: INDOMETHACIN 25 MG CAP PO SCH (21:00)
== END 2020-05-12 11:05 | disposition home or self-care (01) ==
LOC: OR 06:11 → 6NMEDSUR 06:11 → OR 23:02
PROVIDERS: ADMIT Orthopaedic Surgery; ATTEND Orthopaedic Surgery
DX: M50.122 Cervical disc disorder at C5-C6 level with radiculopathy (principal); M48.02 Spinal stenosis, cervical region; M47.22 Other spondylosis with radiculopathy, cervical region; F17.290 Nicotine dependence, other tobacco product, uncomplicated
CPT/HCPCS: 86900; 86901; 80048; 85025; 86850; 72040 ×2; 36415; 22856; 22858; G0378 ×2; C1713; C1762; J2250; J1100; J2710; J0690 ×2; J2405; J2001; J3010; J1885 ×2; J0330; J2704; J1170 ×2